=== PATIENT | female | born 1975 | race Caucasian/White ===

== ENCOUNTER 2021-09-17 11:47 | Emergency (ER) | payer OTHER, SELFPAY ==
--- NOTE | ~2021-09-17 | XR_ITS ---
EXAMINATION: XR lumbar spine 2-3V EXAM DATE: 09/17/2021 12:37 INDICATION: Lower back injury x2 days after fall. Initial encounter. TECHNIQUE: Lumber spine frontal, lateral, lateral L5-S1 projections for interpretation. There is no prior study for comparison. FINDINGS: There is moderate disc disease L5-S1. Minimal disc disease at the other thoracolumbar leve ls. There is mild to moderate lumbar facet arthropathy. There are no acute fractures identified. Sacr um, sacroiliac joints, sacral arcuate lines are intact. There are no bony erosions identified. Parasp inal soft tissue is unremarkable. IMPRESSION: Lumbar spondylosis. No acute findings. Reviewed, dictated and finalized at location A.
[2021-09-17 12:04] VITALS: BP 126/84; PULSE 88; RESP 20; TEMP 35.9; O2SAT 100
[2021-09-17] MEDS: ORPHENADRINE CITRATE 100 MG TABLET.ER PO (12:36)
[2021-09-17] MEDS: KETOROLAC (*BKC) 60 MG/2 ML VIAL IM (12:36)
--- NOTE | 2021-09-17 12:47 | ED.FALL ---
HPI - Fall General Chief Complaint: Fall Stated Complaint: fell, back pain Source: patient Mode of arrival: ambulatory Limitations: no limitations History of Present Illness HPI Narrative: this is a 45-year-old female that had a fall that occurred on Friday injuring her lower back with some no saddle paresthesias no dysuria no bladder dysfunction she rates her pain about an 8/10 hertz with movement and has pain with movement of her her left lower leg and tenderness with palpation and movement in her lower back. Onset (ago): day(s) Fall from: standing Fall witnessed: yes, by family Place fall occurred: home Loss of consciousness: none Prolonged down time: no Symptoms prior to fall: none Context: tripped/slipped Location of injury: back Related Data Allergies Allergy/AdvReac Type Severity Reaction Status Date / Time azithromycin Allergy Unknown Unknown Verified 09/17/21 12:21 Review of Systems Review of Systems: All systems reviewed & are unremarkable except as noted in HPI and below PMFSH Past Medical History Medical History Chronic back pain Exam Const: General: no acute distress and alert Orientation/consciousness: patient oriented x3 HENMT: Head: normal to inspection Eyes: Conjunctivae: conjunctivae normal Pupils: Equal, round and reactive pupils present Neck: Neck: normal visual inspection, no lymphadenopathy and no meningeal signs Chest: Chest palpation & inspection: normal inspection of the chest Resp: Effort & Inspection: normal respiratory effort Auscultation: clear to auscultation bilaterally Cardio: Rate: regular rate Rhythm: regular rhythm GI: Auscultation: normal bowel sounds : General: Yes no CVA tenderness Urinary Catheter: Urinary Catheter: patent and draining Skin: General skin exam: normal color Rashes: no rashes Neuro: General: patient oriented x3, moves all extremities, no meningeal signs and no focal motor deficits Extrem: Other: low back pain with palpation bilateral L4 and L5 paravertebral tenderness with palpation Psych: Mental Status: mental status grossly normal Affect: normal affect Attitude: cooperative Course Course Emergency Course: x-rays reviewed with patient with no acute findings, patient improved pain level with some IM Toradol and IM muscle relaxant Vital Signs Vital signs: Vital Signs Temperature 35.9 C L 09/17/21 12:04 Pulse Rate 88 09/17/21 12:04 Respiratory Rate 20 09/17/21 12:04 Blood Pressure 126/84 09/17/21 12:04 Pulse Oximetry 100 09/17/21 12:04 Temperature 35.9 C L 09/17/21 12:04 Pulse Rate 88 09/17/21 12:04 Respiratory Rate 20 09/17/21 12:04 Blood Pressure 126/84 09/17/21 12:04 Pulse Oximetry 100 09/17/21 12:04 Critical Care Time Critical Care Time Critical Care Time: No Discharge Plan Discharge Clinical Impression: Back pain Qualifiers: Back pain location: low back pain Chronicity: acute Back pain laterality: bilateral Sciatica presence: with sciatica Sciatica laterality: bilateral sciatica Qualified Code(s): M54.42 - Lumbago with sciatica, left side Patient Disposition: Home, Self-Care Condition: Stable Instructions: Antibiotic Form, Acute Low Back Pain (ED) Additional Instructions: take medicine as prescribed and follow-up with primary care physician if symptoms persist or worsen. Prescriptions: New tramadol [Ultram] 50 mg tablet 50 mg PO Q6H PRN (Reason: pain) Qty: 14 RF: 0 cyclobenzaprine 5 mg tablet 5 mg PO TID Qty: 20 RF: 0 Follow-up/Referrals: Rell,Jeanette Carrillo MD [Primary Care Provider] - Time of Disposition: 12:53
== END 2021-09-17 13:01 | disposition home or self-care (01) ==
PROVIDERS: Emergency Provider Emergency Medicine; PCP Family Medicine
DX: M54.42 Lumbago with sciatica, left side (principal)
CPT/HCPCS: 72100; 96372; 99283; A9270; J1885

== ENCOUNTER 2025-02-12 13:14 | Emergency (ER) | payer OTHER, SELFPAY ==
--- NOTE | ~2025-02-12 | XR_ITS ---
EXAMINATION: XR hand RT min 3V DATE: 02/12/2025 13:22 INDICATION: Right hand injury and pain. TECHNIQUE: 3 views of right hand were obtained. COMPARISON: None. FINDINGS: Bone alignment is normal. No fracture. There is mild osteoarthritis of first carpometacarpa l joint, second and third metacarpophalangeal joints, and second and third distal interphalangeal iftikhar nts. IMPRESSION: 1. Mild polyarticular osteoarthritis. Reviewed, dictated and finalized at location A.
[2025-02-12 13:15] VITALS: BP 155/91; PULSE 96; RESP 18; TEMP 36.6; O2SAT 100
--- OUTSIDE RECORDS SUMMARY | 2025-02-12 13:16 | XMS_ITS | Encounter Summary ---
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
--- OUTSIDE RECORDS SUMMARY | 2025-02-12 13:16 | XMS_ITS | Clinical Summary ---
Author Organization [facility] Address [address] [place] [address] Care Team Providers Care Cigarette Making Machine Operator Name Role Phone Jeanette Zacarias MD Primary Care Provider [phone] Allergies Active Allergy Reactions Criticality Noted Date Comments Erythromycin Swelling 11/21/2018 Medications albuterol sulfate HFA 108 (90 Base) MCG/ACT inhaler Inhale 2 puffs into the lungs every 6 (six) hours as needed for Wheezing. 1 Inhaler 9 Active HYDROcodone-yoel taminophen 5-325 MG tablet Take 1 tablet by mouth 3 (three) times daily. 0 Active methylPREDNISol one, DEVON, (MEDROL) 4 MG tablet Follow package directions 1 each 0 Active Active Problems Problem Noted Date Diagnosed Date Tendinitis of right quadriceps tendon 07/12/2020 Loose body in knee, right 07/12/2020 Family History Medical History Relation Comments No Known Problems Father No Known Problems Maternal Grandfather No Known Problems Maternal Grandmother No Known Problems Mother No Known Problems Paternal Grandfather No Known Problems Paternal Grandmother No Known Problems Sister 1 Cancer Sister 2 Relation Status Comments Father Alive Maternal Grandfather Maternal Grandmother Mother Paternal Grandfather Paternal Grandmother Sister 1 Alive Sister 2 Alive Social History Tobacco Use Types Packs/Day Years Used Date Smoking Tobacco: Every Day Cigarettes Smokeless Tobacco: Never Alcohol Use Standard Drinks/Week Comments Never 0 (1 standard drink = 0.6 oz pur e alcohol) AUDIT-C Answer Date Recorded Q1: How often do you have a drink containing alc ohol? 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 Gender Identity Not on file Sexual Orientation Not on file Last Filed Vital Signs Vital Sign Reading Time Taken Comments Blood Pressure 134/78 11/21/2018 4:30 PM COMPRESSED GAS PLANT WORKER Pulse 70 11/21/2018 4:30 PM COMPRESSED GAS PLANT WORKER Temperature 36.6 C (97.9 F) 11/21/2018 1:55 PM COMPRESSED GAS PLANT WORKER Respiratory Rate 13 11/21/2018 4:30 PM COMPRESSED GAS PLANT WORKER Oxygen Saturation 99% 11/21/2018 4:30 PM COMPRESSED GAS PLANT WORKER Inhaled Oxygen Concentration - - Weight 112.9 kg (249 lb) 07/12/2020 9:57 AM CDT Height 167.6 cm (5' 6 ) 07/12/2020 9:57 AM CDT Body Mass Index 40.19 07/12/2020 9:57 AM CDT Plan of Treatment Health Maintenance Due Date Last Done Comments Cervical Cancer Screening Pa p Smear (Age 30 to 64) Every 3 Years 1976 Colorectal Cancer Screening Colonoscopy (10 Years) 1976 Annual Physical 1979 Pneumococcal Vaccine: Pediat rics (0 to 5 Years) and At-Risk Patients (6 to 64 Years) (1 of 2 - PCV) 1982 Hepatitis C 1994 DTaP, Tdap and Td Vaccines ( 1 - Tdap) 1995 Hepatitis B Vaccines (1 of 3 - 19+ 3-dose series) 1995 Cervical Cancer Screening Pa p with HPV Testing (Age 30 to 64) Every 5 Years 2006 Cervical Cancer Screening with HPV 2006 Mammogram Screening 2016 COVID-19 Vaccine (2023-2 5 season) 2024 Meningococcal B Vaccine Aged Out No l onger eligible based on patient's age to complete this topic Meningococcal Vaccine Aged Out No rachelle rios eligible based on patient's age to complete this topic RSV Immunizations Under 20 Months Aged Out No longer eligible based on patient's age to complete this topic [place] [address] [place] [address] MEDICAL REIMBURSEMENTS OF [facility] Care Teams Cigarette Making Machine Operator Relationship Specialty Start Date End Date Jeanette Zacarias MD [address] [facility] [place] [phone] PCP - General FAMILY PRACTICE 04/26/19
--- OUTSIDE RECORDS SUMMARY | 2025-02-12 13:16 | XMS_ITS | Encounter Summary ---
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 No / Unsure 07/12/2020 9:49 AM CDT documented as of this encounter Plan of Treatment Not on file documented as of this encounter Visit Diagnoses Not on filedocumented in this encounter Care Teams Certified Respiratory Therapist Relationship Specialty Start Date End Date Jeanette Zacarias MD [address] [place], [place] [address] [place] [address] PCP - General FAMILY PRACTICE 04/26/19 documented as of this encounter
--- NOTE | 2025-02-12 13:43 | ED_ITS ---
HPI - Extremity Injury (Upper) General Chief Complaint: Extremity Injury, Upper Stated Complaint: rt. hand pain Time Seen by Provider: 02/12/25 13:15 Source: patient Mode of arrival: ambulatory Limitations: no limitations History of Present Illness HPI narrative: Patient is a 41-year-old female with a significant past medical history that presents today for hand injury. Patient her her right hand. She says she was doing something and her daughter hit her right hand accidentally. She has pain mostly over the hypothenar eminence of the thumb on the right hand. She is having problems moving the right thumb without pain. She has not taken anything for this. Area is a little bit swollen no erythema. complaint: injury to: right and hand Other Extremity Injury: Right: hand Handedness: right Place: home Severity: moderate Severity scale (1-10): 5 Relieving factors: immobilization Exacerbating factors: movement of extremity Context: direct blow Associated symptoms: denies other symptoms Related Data Allergies Allergy/AdvReac Type Severity Reaction Status Date / Time azithromycin Allergy Unknown Unknown Verified 09/17/21 12:21 Review of Systems Review of Systems: All systems reviewed & are unremarkable except as noted in HPI and below Constitutional: Constitutional: Reports as per HPI Eyes: Eyes: Reports no additional eye complaints ENT: Reports system reviewed and no additional complaints, except as documented Cardiovascular: Cardiovascular: Reports no additional cardiovascular complaints Respiratory: Respiratory: Reports no additional respiratory complaints Gastrointestinal: Gastrointestinal: Reports no additional gastrointestinal complaints Genitourinary: Genitourinary: Reports no additional female genitourinary complaints Musculoskeletal: Musculoskeletal: Reports as per HPI and Reports arthralgias ( Right hand) Integumentary/Breasts: Skin/Breast: Reports system reviewed and no additional complaints, except as docu Neurologic: Reports system reviewed and no additional complaints, except as documented Psychiatric: Psychiatric: Reports no additional psychiatric complaints Endocrine: Endocrine: Reports no additional endocrine complaints Hematologic/Lymphatic: Hematologic/Lymphatic: Reports no additional hematologic/lymphatic complaints Allergic/Immunologic: Allergic/Immunologic: Reports no additional allergic/immunologic complaints PMFSH Past Medical History Medical History Chronic back pain Exam Const: General: healthy appearing Nutritional Appearance: well nourished Orientation/consciousness: patient oriented x3 HENMT: Head: normal to inspection Ears: external ears normal Face/Nose/Sinus: Normal external nose present Face and sinus: normal facial exam Mouth: Yes Normal oral and palatal mucosa present Teeth and gingiva: dentition normal Eyes: Conjunctivae: conjunctivae normal Pupils: Equal, round and reactive pupils present EOM: EOMs intact bilaterally Neck: Neck: normal visual inspection Chest: Chest palpation & inspection: normal inspection of the chest Resp: Effort & Inspection: normal respiratory effort Auscultation: clear to auscultation bilaterally Cardio: Rate: regular rate Rhythm: regular rhythm GI: GI Palp: Yes Soft to palpation Back/Spine/Pelvis: Back: no CVA tenderness Skin: General skin exam: normal color Rashes: no rashes Wounds: no wounds Neuro: General: patient oriented x3 Cranial nerves: Yes Nystagmus not present Speech: normal speech Extrem: General: normal to inspection Psych: Mental Status: mental status grossly normal Affect: normal affect Attitude: cooperative Course Vital Signs Vital signs: Vital Signs Temperature 97.9 F 02/12/25 13:15 Pulse Rate 96 02/12/25 13:15 Respiratory Rate 18 02/12/25 13:15 Blood Pressure 155/91 H 02/12/25 13:15 Pulse Oximetry 100 02/12/25 13:15 Oxygen Delivery Room Air 02/12/25 13:15 Temperature 97.9 F 02/12/25 13:15 Pulse Rate 96 02/12/25 13:15 Respiratory Rate 18 02/12/25 13:15 Blood Pressure 155/91 H 02/12/25 13:15 Pulse Oximetry 100 02/12/25 13:15 Oxygen Delivery Room Air 02/12/25 13:15 MDM - Extremity Injury (Upper) [facility] Narrative Medical decision making narrative: patient has right hand pain mostly in the hypothenar eminence of right thumb. She Said it hurts to move her hand and make a fist. she most likely has a bad bruise to the bone in that right and in the hypothenar eminence, I do not suspect a fracture due to mechanism of injury. However if there is a fracture we will treated appropriately. X-ray showed no fractures or dislocations. Wrapped with Hayden wrap. Differential Diagnosis Differential diagnosis: Likely fracture of hand and other ( Hand injury) Medical Records Attestation: I reviewed the patient's medical records. Lab Data Attestation: I reviewed the patient's lab results. Imaging Data Attestation: I personally reviewed and interpreted this imaging study as follows: Discharge Plan Discharge Clinical Impression: Hand sprain Patient Disposition: Home, Self-Care Condition: Stable Instructions: Hand Sprain (ED) Additional Instructions: Try to keep putting on the Hayden wrap for the next week while it is healing. Use ice and ibuprofen for the next few days. Then switch to ibuprofen as needed with heat. Patient Language: Kinyarwanda Prescriptions: No Action tramadol [Ultram] 50 mg tablet 50 mg PO Q6H PRN (Reason: pain) Qty: 14 0RF cyclobenzaprine 5 mg tablet 5 mg PO TID Qty: 20 0RF Follow-up/Referrals: UNKNOWN,DOCTOR [Non-Staff] - Time of Disposition: 14:02
--- OUTSIDE RECORDS SUMMARY | 2025-02-12 13:56 | XMS_ITS | Encounter Summary ---
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
--- OUTSIDE RECORDS SUMMARY | 2025-02-12 13:56 | XMS_ITS | Encounter Summary ---
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
--- OUTSIDE RECORDS SUMMARY | 2025-02-12 13:56 | XMS_ITS | Clinical Summary ---
Author Organization [facility] Address [address] [place] [address] Care Team Providers Care Pond Scaler Name Role Phone Jeanette Zacarias MD Primary Care Provider [phone] Allergies Active Allergy Reactions Criticality Noted Date [...] on file Legal Sex Female 5:51 PM MICROELECTRONICS ASSEMBLER Gender Identity Not on file Sexual Orientation Not on file Last Filed Vital Signs Vital Sign Reading Time Taken Comments Blood Pressure 134/78 11/21/2018 4:30 PM MICROELECTRONICS ASSEMBLER Pulse 70 11/21/2018 4:30 PM MICROELECTRONICS ASSEMBLER Temperature 36.6 C (97.9 F) 11/21/2018 1:55 PM MICROELECTRONICS ASSEMBLER Respiratory Rate 13 11/21/2018 4:30 PM MICROELECTRONICS ASSEMBLER Oxygen Saturation 99% 11/21/2018 4:30 PM MICROELECTRONICS ASSEMBLER Inhaled Oxygen Concentration - - Weight 112.9 [...] patient's age to complete this topic [place] [address] [address] [place] [address] MEDICAL REIMBURSEMENTS OF [facility] Care Teams Pond Scaler Relationship Specialty Start Date End Date Jeanette Zacarias MD [address] [facility] [place] [phone] PCP - General FAMILY PRACTICE 04/26/19
--- NOTE | 2025-02-12 14:04 | PC.NURSE ---
On 02/12/25, the student, [anna mtz ], provided care and completed [facility] documentation on this patient. I have reviewed the student's documentation and agree with the findings.
== END 2025-02-12 14:05 | disposition home or self-care (01) ==
PROVIDERS: Emergency Provider Family Medicine; PCP Family Medicine
DX: S63.601A Unspecified sprain of right thumb, initial encounter (principal); W50.0XXA Accidental hit or strike by another person, initial encounter
CPT/HCPCS: 73130; 99283

== ENCOUNTER 2025-06-10 12:23 | Emergency (ER) | payer OTHER, SELFPAY ==
[2025-06-10 12:23] VITALS: BP 128/84; PULSE 91; RESP 20; TEMP 36.6; O2SAT 98
--- OUTSIDE RECORDS SUMMARY | 2025-06-10 12:30 | XMS_ITS | Clinical Summary ---
Author Organization [facility] Address [address] [place] [address] Care Team Providers Care Dough Puncher Name Role Phone Jeanette Zacarias MD Primary Care Provider [phone] Allergies Active Allergy Reactions Criticality Noted Date [...] on file Legal Sex Female 5:51 PM HELIUM ARC WELDER Gender Identity Not on file Sexual Orientation Not on file Last Filed Vital Signs Vital Sign Reading Time Taken Comments Blood Pressure 134/78 11/21/2018 4:30 PM HELIUM ARC WELDER Pulse 70 11/21/2018 4:30 PM HELIUM ARC WELDER Temperature 36.6 C (97.9 F) 11/21/2018 1:55 PM HELIUM ARC WELDER Respiratory Rate 13 11/21/2018 4:30 PM HELIUM ARC WELDER Oxygen Saturation 99% 11/21/2018 4:30 PM HELIUM ARC WELDER Inhaled Oxygen Concentration - - Weight 112.9 kg (249 lb) 07/12/2020 9:57 AM CDT Height 167.6 cm (5' 6) 07/12/2020 9:57 AM CDT Body Mass Index 40.19 07/12/2020 9:57 AM CDT Plan of Treatment Health Maintenance Due Date Last Done Comments Cervical Cancer Screening Pa p Smear (Age 30 to 64) Every 3 Years 1976 Colorectal Cancer Screening Colonoscopy (10 Years) 1976 Annual Physical 1979 Hepatitis C 1994 DTaP, Tdap and Td Vaccines ( 1 - Tdap) 1995 Hepatitis B Vaccines (1 of 3 - 19+ 3-dose series) 1995 Pneumococcal Vaccine: Pediat rics (0 to 5 Years) and At-Risk Patients (6 to 49 Years) (1 of 2 - PCV) 1995 Cervical Cancer Screening Pa p with [...] patient's age to complete this topic [place] [address] [address] [place] [id number] MEDICAL REIMBURSEMENTS OF [facility] Care Teams Dough Puncher Relationship Specialty Start Date End Date Jeanette Zacarias MD [address] [facility] [place] [phone] PCP - General FAMILY PRACTICE 04/26/19
--- OUTSIDE RECORDS SUMMARY | 2025-06-10 12:30 | XMS_ITS | Encounter Summary ---
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 No / Unsure 07/12/2020 9:49 AM CDT documented as of this encounter Functional Status documented as of this encounter Plan of Treatment Not on file documented as of this encounter Visit Diagnoses Not on filedocumented in this encounter Care Teams Stretch Box Tender Relationship Specialty Start Date End Date Jeanette Zacarias MD [address] [place] [phone] PCP - General FAMILY PRACTICE 04/26/19 documented as of this encounter
--- OUTSIDE RECORDS SUMMARY | 2025-06-10 12:30 | XMS_ITS | Encounter Summary ---
Author Organization [facility] Address [address] [place] [id number] Care Team Providers Care Talent Development Manager Name Role Phone None, Provider Primary Care Provider Jeanette Kelley MD Primary Care Provider [phone] Encounter Details Date Type Department Care Team (Late st Contact Info) Description 04/24/2019 Abstract [facility] CONVERSION [address] [place] [address] , Generic Conversion, Social History Tobacco Use Types Packs/Day Years Used Date Smoking Tobacco: Never Assessed Comments No Sex and Gender Information Value Date Recorded Sex Assigned at Not on file Legal Sex Female 5:51 PM BOXING AND PRESSING SUPERVISOR Gender Identity Not on file Sexual Orientation Not on file documented as of this encounter Plan of Treatment Not on file documented as of this encounter Visit Diagnoses Not on filedocumented in this encounter Care Teams Talent Development Manager Relationship Specialty Start Date End Date None, Provider, PCP - General 11/21/18 04/25/19 Jeanette Zacarias MD [address] [place] [phone] PCP - General FAMILY PRACTICE 04/26/19 documented as of this encounter
--- NOTE | 2025-06-10 12:33 | ED.SKABFB ---
HPI - Skin/Abscess/Foreign Bdy General Chief complaint: Skin/Abscess/Foreign Body Stated complaint: yeast rash Time Seen by Provider: 06/10/25 12:31 Source: patient Mode of arrival: ambulatory Limitations: no limitations History of Present Illness HPI narrative: 49-year-old female with back pain presents to the ED with multiple day history of -- rash under both breasts which is painful and erythematous. The patient has been using diaper rash cream without any improvement. No rashes present elsewhere. Patient is not on steroids. Patient is not on any antibiotics at this time. complaint: rash Onset (ago): week(s) Tetanus up to date: no Location: chest Severity: severe Quality: burning Pain Consistency: constant Relieving factors: none Context: none Associated symptoms: other ( Has right ankle pain from recent sprain injury) Treatments prior to arrival: other ( diaper rash cream) Related Data Allergies Allergy/AdvReac Type Severity Reaction Status Date / Time azithromycin Allergy Unknown Unknown Verified 09/17/21 12:21 Review of Systems Review of Systems: All systems reviewed & are unremarkable except as noted in HPI and below PMFSH Past Medical History Medical History Chronic back pain Exam Const: General: no acute distress Nutritional Appearance: well nourished Orientation/consciousness: patient oriented x3 Limitations: no limitations HENMT: Head: normal to inspection Ears: external ears normal Face/Nose/Sinus: Normal external nose present Face and sinus: normal facial exam Mouth: Yes Normal oral and palatal mucosa present Throat: posterior oropharynx normal Eyes: Conjunctivae: conjunctivae normal Pupils: Equal, round and reactive pupils present EOM: EOMs intact bilaterally Direct Ophthalmoscopy: no photophobia Neck: Neck: normal visual inspection, no lymphadenopathy and no meningeal signs Chest: Chest palpation & inspection: normal inspection of the chest Resp: Effort & Inspection: normal respiratory effort Auscultation: clear to auscultation bilaterally Cardio: Rate: regular rate Rhythm: regular rhythm GI: Auscultation: normal bowel sounds Other: no tenderness/ rigidity /rebound : General: Yes no CVA tenderness Back/Spine/Pelvis: Back: no CVA tenderness Skin: Other: erythematous rash in the inframammary region bilaterally. Neuro: General: patient oriented x3 Cranial nerves: Yes Nystagmus not present Speech: normal speech Extrem: General: normal to inspection and edema ( Swelling around the right ankle) Psych: Mental Status: mental status grossly normal Affect: normal affect Attitude: cooperative Course Course Emergency Course: intertrigo-- possibly candy dL Vital Signs Vital signs: Vital Signs Temperature 36.6 C 06/10/25 12:23 Pulse Rate 91 06/10/25 12:23 Respiratory Rate 20 06/10/25 12:23 Blood Pressure 128/84 06/10/25 12:23 Pulse Oximetry 98 06/10/25 12:23 Oxygen Delivery Room Air 06/10/25 12:23 Temperature 36.6 C 06/10/25 12:23 Pulse Rate 91 06/10/25 12:23 Respiratory Rate 20 06/10/25 12:23 Blood Pressure 128/84 06/10/25 12:23 Pulse Oximetry 98 06/10/25 12:23 Oxygen Delivery Room Air 06/10/25 12:23 MDM - Skin/Abscess/Foreign Bdy MDM Narrative Medical decision making narrative: intertrigo Differential Diagnosis Differential diagnosis: Likely other ( tinea cruris supported dermatitis) Discharge Plan Discharge Clinical Impression: Candidal intertrigo Patient Disposition: Home Condition: Stable Instructions: Antibiotic Form, Skin Yeast Infection (ED) Patient Language: Slovak Prescriptions: New fluconazole 150 mg tablet 150 mg PO WEEKLY 28 Days Qty: 4 0RF ketoconazole 2 % cream 1 applic topical DAILY Qty: 60 0RF No Action tramadol [Ultram] 50 mg tablet 50 mg PO Q6H PRN (Reason: pain) Qty: 14 0RF cyclobenzaprine 5 mg tablet 5 mg PO TID Qty: 20 0RF Follow-up/Referrals: Russell Asif M.D. [Primary Care Provider] - Time of Disposition: 13:21
--- OUTSIDE RECORDS SUMMARY | 2025-06-10 13:08 | XMS_ITS | Encounter Summary ---
Author Organization [facility] Address [address] [place] [address] Care Team Providers Care Unit Manager [employer]ience [employer] Name Role Phone None, Provider Primary Care Provider Jeanette Kelley MD Primary Care Provider [phone] Encounter Details Date Type Department Care Team (Late st Contact Info) Description 04/24/2019 Abstract [facility]FL CONVERSION [address] [place] [address] , Generic Conversion, Social History Tobacco Use Types Packs/Day Years Used Date Smoking Tobacco: Never Assessed Comments No Sex and Gender Information Value Date Recorded Sex Assigned at Not on file 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
--- OUTSIDE RECORDS SUMMARY | 2025-06-10 13:08 | XMS_ITS | Clinical Summary ---
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 Gender Identity Not on file Sexual Orientation Not on file Last Filed Vital Signs Vital Sign Reading Time Taken Comments Blood Pressure 134/78 11/21/2018 4:30 PM SHEEP OR CALF GRADER Pulse 70 11/21/2018 4:30 PM SHEEP OR CALF GRADER Temperature 36.6 C (97.9 F) 11/21/2018 1:55 PM SHEEP OR CALF GRADER Respiratory Rate 13 11/21/2018 4:30 PM SHEEP OR CALF GRADER Oxygen Saturation 99% 11/21/2018 4:30 PM SHEEP OR CALF GRADER Inhaled Oxygen Concentration - - Weight 112.9 [...] patient's age to complete this topic Insurance [address] [address] [facility] Care Teams Gas Transfer Operator Relationship Specialty Start Date End Date Jeanette Zacarias MD [address] [facility] [place] [phone] PCP - General FAMILY PRACTICE 04/26/19
--- OUTSIDE RECORDS SUMMARY | 2025-06-10 13:08 | XMS_ITS | Encounter Summary ---
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
[2025-06-10] MEDS: HYDROcodone/acetaminophen (*CRX) 5-325 MG TABLET 1 TAB PO (13:24)
[2025-06-10] MEDS: TETANUS,DIPHTHERIA,AC PERTUSSIS ADULT 0.5 ML (ADACEL) IM (13:25)
== END 2025-06-10 13:30 | disposition home or self-care (01) ==
PROVIDERS: Emergency Provider Internal Medicine Critical Care Medicine; PCP Family Medicine
DX: B37.2 Candidiasis of skin and nail (principal); Z23 Encounter for immunization
CPT/HCPCS: 90471; 90715; 99283; A9270